=== PATIENT | male | born 1935 | race Caucasian/White ===

== ENCOUNTER → 2017-01-27 | Outpatient (CLI) | payer MEDICARE, BC ==
[~2017-01-27] MED LIST: ALBU18HF IH; AMLO2.5T78 PO; ATOR20TA17 PO; BIMA2.5D LEFT EYE; BRIN8DRO LEFT EYE; GLYB5TAB3 PO; HYDR-1666 PO; METO-407 PO; VALS1TAB64 PO
--- NOTE | 2017-01-27 15:48 | PN ---
Date/Time of Note Date/Time of Note DATE: 01/27/17 TIME: 15:41 Outpatient Progress Note Chief Complaint Follow-up left knee replacement with recent injury HPI 81-year-old male presents today for follow-up to the left knee. 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 He was last seen on 07/19/2015 and his complaint was crunching sensation to the left knee with movement. Dr. Kennedy evaluated the patient on last evaluation and determined that scarring is the cause of ongoing crunchy/Velcro sensation with range of motion. It was recommended that no therapy at that time should be pursued and likely scarring will smooth over. Patient states that today scarring has indeed smoothed over and crunchy sensation has alleviated itself. Patient was doing well with no pain complaints up until 01/20/2017 when he experienced a fall landing directly on the anterior of the bilateral knees over a steel protuberance on the street. He presented to an urgent care on the day of as he also suffered head injury. Transported to [facility] for evaluation regards to head trauma. Patient experienced severe complaints of the left foot/ Achilles region. Patient does a lot of ambulation on a daily basis and states that his left Achilles/ankle was his biggest pain complaint as he can become severe especially after walking up to three quarters of a mile. He began experiencing pain to the left knee about 2-3 days after the initial fall that presented up to an 8-9/10 on the pain scale. Over time pain was reduced to about a 3-4/10 on the pain scale on its own. Patient mentions that in regards to Achilles tendon issues that symptoms began about 2-1/2 weeks earlier prior to fall and usually after walking 5-7 miles. Tenderness to palpation to the Achilles tendon. In regards to the left knee he denies any pain at this time his pain seems to have been self-limited. He does have superficial skin abrasions and ecchymosis over the left knee but denies any severe pain. Denies any fever, chills or malaise. Denies any stiffness or limited range of motion/ functionality to the left knee status post injury. Overall patient is beginning to improve in regards to the left knee but continues with ongoing off and on pain to the ankle. Review of Systems Const: No Fever, no chills, no Fatigue, normal appetite, no diaphoresis. Resp: No SOB, no wheezing, no chest pain. CV: No chest pain, no palpitaions, no [place]. Physical Exam Blood pressure is 115/57, temperature is 98.4, pulse is 45, respiratory rate is 12, height is 5 foot 11 inches, weight is 242 pounds General Appearance: well-developed, well-nourished, in no acute distress. Left knee: Superficial skin abrasions just proximal to the left knee. Mild ecchymosis over the anterior left knee. No tenderness to palpation on exam today. Patient is able to fully extend with 5/5 strength on resistance. Patient is also able to flex up to 125 with no pain and 5/5 strength on resistance. Normal sensory examination to light touch. Negative Homans sign on exam. Patient is walking independently without any assisted ambulatory device. Left ankle: Patient appears to have full range of motion to the left ankle with dorsiflexion, plantarflexion, inversion and eversion. No pain complaints on examination today. No tenderness to palpation to the Achilles tendon. Achilles tendon seems congruent with no palpable abnormality especially when compared to the right side. Negative Bryant's test bilaterally. Imaging X-ray of the left knee performed on 01/27/2017 showing all components appearing well aligned, attached and integrated to the bone. No signs of any lucency between metal and bone. Allergies Coded Allergies: No Known Allergies (Verified Allergy, Unknown, 04/11/15) Assessment/Plan * Lengthy discussion had with patient today and it was explained that likely patient is having left Achilles tendinitis. Likely this is pre-existing as he did state that pain symptoms began about 2-2-1/2 weeks earlier and usually after increased activity that involves walking up to 5-7 miles which can clearly aggravate the Achilles tendon. R.I.C.E. therapeutic modalities discussed in detail with patient. * Patient would like name of a physician that specializes in ankle and foot. Dr. Vignesh Pandey referral card was given. * In regards to the left knee supportive measures discussed in detail with patient today in regards to anti-inflammatories, rest, ice, elevation and possible shola wrap for additional support. Patient states that he has been doing well over the past 24-48 hours in regards to relief of left knee pain with improved function. * Follow-up as needed from this point but should patient express any increasing pain or complication he may return for an appointment as we would be glad to see him. Medications Home Meds Reported Medications Bimatoprost* (Lumigan*) 0.01%-2.5 Ml Opht Drops, 1 DROP LEFT EYE HS, EA 04/11/15 Valsartan-Hydrochlorothiazide (Diovan HCT) 160-25 Mg Tablet, 1 TAB PO DAILY, TAB 04/11/15 Brinzolamide-Brimonidine (Simbrinza 1%-0.2% Oph) 1%-0.2% - 8 Ml Drops.susp, 1 DROP LEFT EYE DAILY, EA 04/11/15 Bimatoprost* (Lumigan*) 0.01%-2.5 Ml Opht Drops, 1 DROP LEFT EYE HS, EA 04/11/15 Albuterol Sulfate* (Ventolin HFA*) 18 Gm Hfa.aer.ad, 18 GM IH 2PUFFS QID PRN 05/21/11 Amlodipine Besylate* (Amlodipine Besylate*) 2.5 Mg Tablet, 2.5 MG PO DAILY 05/21/11 Glyburide* (Glyburide*) 5 Mg Tablet, 5 MG PO HS 05/21/11 Atorvastatin (Lipitor) 20 Mg Tablet, 20 MG PO HS 05/21/11 Hydrocodone Bit/Acetaminophen (Vicodin 5/500 Tablet) 1 Tab Tablet, 1 TAB PO DAILY PRN 05/21/11 Metoprolol Tartrate* (Lopressor*) 100 Mg Tablet, 50 MG PO HS 05/21/11 BERNADINE BUSTILLOS PA-C Jan 27, 2017 15:48
--- NOTE | 2017-01-28 09:14 | RADRPT ---
PROCEDURE: XR Knee. CLINICAL INDICATION: Left knee pain TECHNIQUE: 3 images of the left knee are available for review. COMPARISON: Radiographs of the left knee May 23, 2015 FINDINGS: There is a constrained left knee total arthroplasty in anatomic alignment. There is a small joint e ffusion. There is no acute fracture. The soft tissues appear otherwise unremarkable. IMPRESSION: 1. Left knee constrained total arthroplasty in anatomic alignment without evidence of fracture. 2. Small knee joint effusion. RPTAT: [facility]U .Mariusz Gomez MD, MD Date Time Electronically viewed and signed by .Mariusz Gomez MD, on 01/28/2017 09:14 .K/
== END | disposition home or self-care (01) ==
LOC: HKI 14:54
DX: M79.672 Pain in left foot (principal); S80.212D Abrasion, left knee, subsequent encounter; W19.XXXD Unspecified fall, subsequent encounter; Z96.652 Presence of left artificial knee joint
CPT/HCPCS: 73562; G0463